=== PATIENT | male | born 1985 | race Caucasian/White ===

== ENCOUNTER 2016-11-13 19:57 | Emergency (ER) | payer OTHER ==
[2016-11-13 20:20] VITALS: BP 124/77
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
--- NOTE | 2016-11-13 21:35 | XRAY Preliminary Report ---
Exam: XR Shoulder 3 View RT IMPRESSION: Widening of acromioclavicular joint space, question soft tissue injury without fracture. [facility] SITE ID: [id number]
--- NOTE | 2016-11-13 21:37 | XRAY Report ---
EXAM: RIGHT SHOULDER RADIOGRAPHY EXAM DATE: 11/13/2016 09:17 PM. CLINICAL HISTORY: R shoulder inj. shoulder pain. COMPARISON: None. TECHNIQUE: 3 views. FINDINGS: Bones: Normal. No fracture or bone lesion. Joints: There is widening of the acromioclavicular joint measuring 1 cm. Glenohumeral alignment appea rs satisfactory. Soft tissues: The visualized hemithorax is unremarkable. No soft tissue swelling. IMPRESSION: Widening of acromioclavicular joint space, question soft tissue injury without fracture. [facility] Referring Provider Line: [phone] SITE ID: [id number]
== END 2016-11-13 22:06 | disposition home or self-care (01) ==
LOC: ED 19:57
DX: S43.101A Unspecified dislocation of right acromioclavicular joint, initial encounter (principal); V28.4XXA Motorcycle driver injured in noncollision transport accident in traffic accident, initial encounter
CPT/HCPCS: 99283